=== PATIENT | female | born 1985 | race Caucasian/White ===

== ENCOUNTER 2022-12-10 10:19 | Outpatient (CLI) | payer OTHER | END 2022-12-10 10:20 | disposition home or self-care (01) | LOC: BICMAMMO 10:19 | PROVIDERS: ATTEND Nurse Practitioner Family | DX: N63.11 Unspecified lump in the right breast, upper outer quadrant (principal); N64.4 Mastodynia | CPT/HCPCS: 77066; G0279 ==

== ENCOUNTER 2024-05-06 15:00 | Outpatient (CLI) | payer OTHER | END 2024-05-06 15:01 | disposition home or self-care (01) | LOC: SCSMRI 15:00 | PROVIDERS: ATTEND Physical Medicine & Rehabilitation | DX: M54.16 Radiculopathy, lumbar region (principal); M43.17 Spondylolisthesis, lumbosacral region; M47.817 Spondylosis without myelopathy or radiculopathy, lumbosacral region; M48.07 Spinal stenosis, lumbosacral region | CPT/HCPCS: 70210; 72148 ==

== ENCOUNTER 2024-12-01 10:21 | Outpatient (CLI) | payer OTHER | END 2024-12-01 10:22 | disposition home or self-care (01) | LOC: SCSRAD 10:21 | PROVIDERS: ATTEND Orthopaedic Surgery | DX: M54.50 Low back pain, unspecified (principal); Z98.890 Other specified postprocedural states | CPT/HCPCS: 72100 ==

== ENCOUNTER 2025-08-02 17:43 | Emergency (ER) | payer OTHER ==
[~2025-08-02 17:43] MED LIST: Iopamidol-370 76% 500 ML MDV (1 ML CHARGE) ONE
[2025-08-02 18:44] LABS: CAUTI Indications for Culture Pelvic or flank pain; Glucose, Urine (Dipstick) Normal (Negative); Leukocyte Negative Leu/uL (Negative); Protein, Urine (Dipstick) Negative (Neg-Trace); RBC/HPF 21-50 HPF (0-3); Specific Gravity, Urine 1.021 (1.002-1.036); WBC/HPF 0-3 HPF (0-3)
[2025-08-02] MEDS ORDERED: Ondansetron PF 4 MG/2 ML Vial ONE (18:52)
[2025-08-02 19:08] LABS: Bacteria/HPF 1+ HPF (None Seen); Urine Culture Reflex No No
[2025-08-02 19:09] LABS: #Basophils 0.07 10x3/uL (0.0-0.2); #Eosinophils 0.20 10x3/uL (0.0-0.7); #Monocytes 0.99 10x3/uL (0.11-0.59); #Neutrophils 9.10 10x3/uL (1.40-6.50); %Basophils 0.5 % (0.0-1.0); %Eosinophils 1.5 % (0.0-10.0); %Lymphocytes 20.2 % (21.0-51.0); %Monocytes 7.6 % (0.0-10.0); %Neutrophils 69.8 % (42.0-75.0); Hematocrit 42.4 % (36.0-47.0); Hemoglobin 14.3 g/dL (12.0-16.0); Mean Corpuscular Hemoglobin 31.9 pg (27.0-31.0); Mean Corpuscular Volume 94.6 fL (78.0-98.0); Platelet Count 244 10x3/uL (130-400); Red Blood Cell (RBC) Count 4.48 mill/uL (4.20-5.40); White Blood Cell (WBC) Count 13.05 10x3/uL (4.8-10.8)
[2025-08-02 19:30] LABS: BHCG - Serum Negative (NEGATIVE); Pregs Control Background? CLEAR/WHITE (CLR/WHITE); Pregs Control Bar Appear? YES (CONTROL BAR)
[2025-08-02 19:37] LABS: ALT (SGPT) 11 U/L (Less than 34); AST (SGOT) 20 U/L (11-34); Albumin 3.8 g/dL (3.1-4.5); Alkaline Phosphatase 85 U/L (40-110); Anion Gap 13 mmol/L (10-20); BUN (Urea Nitrogen) 16 mg/dL (7.0-18.7); Bilirubin, Total 0.3 mg/dL (0.3-1.2); Calc. Creatinine Clearance 0 mL/min (70-130); Calcium 8.8 mg/dL (7.8-10.44); Carbon Dioxide 22 mmol/L (22-29); Chloride 106 mmol/L (98-107); Globulin 3.4 g/dL (2.4-3.5); Glucose 103 mg/dL (70-105); Lipase 26 U/L (8-78); Potassium 4.1 mmol/L (3.5-5.1); Sodium 137 mmol/L (136-145)
[2025-08-02] MEDS ORDERED: Ketorolac Tromethamine 30 MG (1 mL) VIAL ONE (20:43)
[2025-08-02] MEDS ORDERED: cefTRIAXone (ROCEPHIN) 2 GM VIAL ONE (21:04)
== END 2025-08-02 22:11 | disposition home or self-care (01) ==
LOC: ERS 17:43
DX: N21.1 Calculus in urethra (principal); N13.2 Hydronephrosis with renal and ureteral calculous obstruction; F17.210 Nicotine dependence, cigarettes, uncomplicated
CPT/HCPCS: 74177; 80053; 81001; 83690; 84703; 85025; 96365; 96375; 96376; J0696; J1885; Q9967